=== PATIENT | female | born 1965 | race Caucasian/White ===

== ENCOUNTER 2019-02-23 15:00 | Outpatient (CLI) | payer OTHER ==
--- NOTE | 2019-02-24 09:39 | CT ---
CT HEART WITHOUT CONTRAST CALCIUM SCORING: HISTORY: R90.89, other symptoms and signs of circulatory and respiratory distress. R09.89, other specified symptoms and signs involving the circulatory and respiratory symptoms. COMPARISON: None. FINDINGS: Visualized lung parenchyma is normal. No pericardial effusion. No acute osseous abnormality is appreciated. There are no coronary artery calcifications. IMPRESSION: Total Henderson score of 0- negative test. Findings are consistent with a low risk of having a cardiova scular event in the next 5 years. POS: [facility]
== END 2019-02-23 15:01 | disposition home or self-care (01) ==
LOC: BICCT 15:00
PROVIDERS: ATTEND Internal Medicine Endocrinology, Diabetes & Metabolism
DX: R09.89 Other specified symptoms and signs involving the circulatory and respiratory systems (principal)
CPT/HCPCS: 75571

== ENCOUNTER 2019-04-11 08:08 | Outpatient (CLI) | payer BC | END 2019-04-11 08:09 | disposition home or self-care (01) | LOC: EEG 08:08 | PROVIDERS: ATTEND Family Medicine | DX: R55 Syncope and collapse (principal) | CPT/HCPCS: 95816 ==

== ENCOUNTER 2019-08-02 07:10 | Outpatient (CLI) | payer BC ==
--- NOTE | 2019-08-02 09:53 | ULT ---
BILATERAL RENAL ULTRASOUND COMPLETE: Date: 08/02/19 HISTORY: Follow-up left renal lesion. FINDINGS: Right kidney measures 10.4 x 4.6 x 4.6 cm. Left kidney measures 11.5 x 5.3 x 5.4 cm. There is a 1.2 x 1.4 x 0.8 cm cyst of the right kidney. The left kidney demonstrates a 0.5 x 0.5 x 0.6 cm diameter hy perechoic focus. This does not definitely shadow. No renal hydronephrosis. No perinephric process. Th e bladder is unremarkable. IMPRESSION: 1. Small left renal hyperdense focus, nonspecific. 2. Small right renal cyst. 3. No hydronephrosis. POS: [facility]
== END 2019-08-02 07:11 | disposition home or self-care (01) ==
LOC: BICULT 07:10
PROVIDERS: ATTEND Urology
DX: D30.02 Benign neoplasm of left kidney (principal); N28.1 Cyst of kidney, acquired
CPT/HCPCS: 76770